=== PATIENT | female | born 1940 | race Caucasian/White ===

== ENCOUNTER 2020-10-26 02:06 | Day surgery (SDC) | payer OTHER, SELFPAY ==
[2020-10-18 13:07] VITALS: BMI 24.5
[2020-10-26 09:48] VITALS: BP 151/86; PULSE 92; RESP 20; TEMP 36.2; O2SAT 98; BMI 23.6
--- NOTE | 2020-10-26 09:51 | WPDANESEPPF ---
Anes - Initial Pre Proc Eval Procedure: Operation Date: 10/26/20 10:30 Proposed Procedures p Esophagogastroduodenoscopy - Doe Macdonald MD Date/Time: 10/26/20 09:51 Surgeon: Doe Macdonald MD Pre Op Diagnosis: GERD, Dysphagia Patient Data Age: 80 Gender: F Height: 1.65 m Weight: 64.3 kg Last Vital Signs Temp 97.1 F L 10/26/20 09:48 Pulse 92 10/26/20 09:48 Resp 20 10/26/20 09:48 BP 151/86 H 10/26/20 09:48 Pulse Ox 98 10/26/20 09:48 Allergies Allergy/AdvReac Type Severity Reaction Status Date / Time Sulfa (Sulfonamide Allergy Unknown Unknown Verified 10/26/20 09:46 Antibiotics) Home Medications Medication Instructions Recorded Confirmed Type aspirin [Aspir-81] 81 mg PO DAILY 10/18/20 10/18/20 History levothyroxine 100 mcg PO DAILY 10/18/20 10/18/20 History pantoprazole 40 mg PO BID 10/18/20 10/18/20 History Patient hx anesthesia problems: none Family hx anesthesia problems: none PMFSH Past Medical History Medical History (Updated 10/26/20 @ 09:45 by Eddie Reyna MD) Arthritis GERD (gastroesophageal reflux disease) TIA (transient ischemic attack) Family History Family History (Updated 11/28/15 @ 09:38 by DOCTOR UNKNOWN) Other Cerebrovascular accident Family history of cardiovascular disease Family history of rheumatoid arthritis Social History Social History Smoking status: Former smoker Tobacco type: cigars Alcohol intake: current Drinks per week: 7 Alcohol use details: one glass wine daily Substance use: never Substance use type: does not use Living arrangements: alone Gender identity (if verbalized by the patient): Female Sexual Orientation (if Verbalized by the Patient): Straight or Heterosexual Spiritual care concerns: No Anes - Eval Final PreProcedure Day of Procedure 10/26/20 09:51 Patient weight: overweight Heart: regular rate and rhythm Lungs: clear to auscultation Airway: Mallampati scale class II Neurological: alert and oriented Last oral intake: >/= 8 hours ASA classification: III Emergent: no Anesthetic plan: proceed Anesthesia type and monitoring: general GIVS and standard monitoring Informed Consent: The patient's anesthetic plan and its attendant risks and benefits were discussed with the patient/family/POA. Questions were solicited and answers provided to the satisfaction of the patient/family/POA.
[2020-10-26] MEDS: LACTATED RINGERS 1,000 ML 150 ML IV CONT (09:52)
--- NOTE | 2020-10-26 09:53 | SUR.PREOP ---
Small purple raised area noted to lower lip.
--- NOTE | 2020-10-26 10:16 | P.CONGI_ITS ---
Assessment and Plan Assessment and plan (1) Dysphagia: Code(s): R13.10 - Dysphagia, unspecified Status: Acute Assessment and Plan: Patient has difficulty swallowing. Appears to be on the basis of acid reflux. Plan is for EGD to assess more thoroughly. Soft food is advised. Continuing PPI therapy as prudent further recommendations will be given after endoscopy. (2) GERD (gastroesophageal reflux disease): Code(s): K21.9 - Gastro-esophageal reflux disease without esophagitis Status: Inactive Assessment and Plan: Patient has a history of heartburn. This is improved on PPI therapy. Necessity for b.i.d. or once daily dosing will be determined after endoscopy. GI Consult Note Consult date/time: 10/26/20 10:16 HPI: Bisi Ayala is a 80 year old female Complains of difficulty swallowing. She reports over the last 6 months she has had difficulty swallowing. Food will catch in the mid substernal portion of the chest. Patient has tried PPI therapy with no consistent improvement. Swallowing difficulties appear to happen with more solid foods. She does regurgitate and bring food back up when he gets caught. Patient has been treated for acid reflux. She has had heartburn off and on for many years. Patient denies any weight loss or bleeding. Patient presents today for EGD. Review of Systems Review of Systems: All systems reviewed & are unremarkable except as noted in HPI and below PMFSH Past Medical History Medical History (Updated 10/26/20 @ 10:18 by Doe Macodnald MD) Arthritis GERD (gastroesophageal reflux disease) TIA (transient ischemic attack) Family History Family History (Updated 11/28/15 @ 09:38 by DOCTOR UNKNOWN) Other Cerebrovascular accident Family history of cardiovascular disease Family history of rheumatoid arthritis Social History Social History Smoking status: Former smoker Tobacco type: cigars Alcohol intake: current Drinks per week: 7 Alcohol use details: one glass wine daily Substance use: never Substance use type: does not use Living arrangements: alone Gender identity (if verbalized by the patient): Female Sexual Orientation (if Verbalized by the Patient): Straight or Heterosexual Spiritual care concerns: No Meds Home Medications and Allergies Home Medications Medication Instructions Recorded Confirmed Type aspirin [Aspir-81] 81 mg PO DAILY 10/18/20 10/18/20 History levothyroxine 100 mcg PO DAILY 06/22/21 06/22/21 History pantoprazole 40 mg PO BID 10/18/20 10/18/20 History Allergies Allergy/AdvReac Type Severity Reaction Status Date / Time Sulfa (Sulfonamide Allergy Unknown Unknown Verified 10/26/20 09:46 Antibiotics) Vital Signs Vital Signs - 24 hr 10/26/20 09:48 Temperature 97.1 F L Pulse Rate 92 Respiratory Rate 20 Blood Pressure 151/86 H Pulse Oximetry 98 Exam Narrative: Exam Narrative: Physical exam reveals patient be alert. Vital signs stable. HEENT exam is unremarkable. Patient is anicteric. Lungs are c lear to auscultation and percussion. Heart is without murmur or extra sounds. Abdominal exam bowel sounds are present soft nontender with no organomegaly. Digital external rectal exam deferred.
[2020-10-26 10:21] VITALS: BP 128/69; PULSE 76; RESP 25; O2SAT 98
[2020-10-26 10:31] VITALS: BP 136/79; PULSE 78; RESP 18; O2SAT 100
[2020-10-26 10:41] VITALS: BP 159/86; PULSE 79; RESP 18; O2SAT 96
== END 2020-10-26 10:47 | disposition home or self-care (01) ==
PROVIDERS: PCP Family Medicine Adolescent Medicine; Visit Provider Internal Medicine Gastroenterology
PROC: 0DJ08ZZ Inspection of Upper Intestinal Tract, Via Natural or Artificial Opening Endoscopic (ICD-10-PCS; CPT 43235; principal; 2020-10-26 10:30)
DX: K22.2 Esophageal obstruction (principal); K31.5 Obstruction of duodenum; K21.9 Gastro-esophageal reflux disease without esophagitis; Z86.73 Personal history of transient ischemic attack (TIA), and cerebral infarction without residual deficits; Z79.82 Long term (current) use of aspirin; Z87.891 Personal history of nicotine dependence
CPT/HCPCS: 43245; 43450; C1726; J2704; J7120

== ENCOUNTER 2020-11-13 10:14 | Emergency (ER) | payer OTHER, SELFPAY ==
[2020-11-13 10:22] VITALS: BP 147/80; PULSE 106; RESP 18; TEMP 36.2; O2SAT 97
--- NOTE | 2020-11-13 10:22 | ED.BACK ---
HPI - Back Pain/Injury General Chief Complaint: Back Pain/Injury Stated Complaint: mid back pain Time Seen by Provider: 11/13/20 10:30 Source: patient and RN notes reviewed Mode of arrival: ambulatory Limitations: no limitations History of Present Illness HPI Narrative: 80-year-old female presents with concern for upper back pain between her shoulder blades. Reports symptoms started approximately 1 week ago. She denies any injury or trauma. She denies any precipitating factors such as overexertion, yard work etc. She reports symptoms have worsened over the last 2 days causing her problems sleeping. She reports she has been taking ibuprofen with no relief. She denies any chest pain, shortness of breath. Reports one episode of nausea yesterday. She denies cough, fever, upper respiratory symptoms. She denies rash, burning sensation. She was vaccinated for Covid and shingles. She denies any pain relieving factors. MD elicited complaint: back pain Related Data Home Medications Medication Instructions Recorded Confirmed aspirin [Aspir-81] 81 mg PO DAILY 10/18/20 11/13/20 levothyroxine 100 mcg PO DAILY 10/18/20 11/13/20 pantoprazole 40 mg PO BID 10/18/20 11/13/20 denosumab [Prolia] 60 mg SUBCUT WEEKLY 11/13/20 11/13/20 Allergies Allergy/AdvReac Type Severity Reaction Status Date / Time Sulfa (Sulfonamide Allergy Unknown Unknown Verified 10/26/20 09:46 Antibiotics) Review of Systems Review of Systems: Narrative: CONSTITUTIONAL: Denies malaise, chills, sweats, or fever. EYES: Denies visual changes, redness, or discharge. ENT: Denies rhinorrhea, congestion, sinus pain, otalgia or sore throat. CARDIOVASCULAR: Denies chest pain, palpitations, or edema. RESPIRATORY: Denies cough or dyspnea. GASTROINTESTINAL: Denies abdominal pain,vomiting, diarrhea. Reports one episode of nausea GENITOURINARY: Denies dysuria or hematuria. SKIN: Denies rash, burning, or itching. MUSCULOSKELETAL: Reports upper back pain. Denies joint pain, or myalgia. NEUROLOGIC: Denies numbness, weakness, or headache. PSYCHIATRIC: Denies anxiety or depression. All systems reviewed & are unremarkable except as noted in HPI and below PMFSH Past Medical History Medical History (Updated 11/13/20 @ 11:02 by Catrina Rivera NP) Arthritis GERD (gastroesophageal reflux disease) TIA (transient ischemic attack) Family History Family History (Updated 11/28/15 @ 09:38 by DOCTOR UNKNOWN) Other Cerebrovascular accident Family history of cardiovascular disease Family history of rheumatoid arthritis Social History Social History Smoking status: Former smoker Tobacco type: cigars Alcohol intake: current Drinks per week: 7 Alcohol use details: one glass wine daily Substance use: never Substance use type: does not use Gender identity (if verbalized by the patient): Female Spiritual care concerns: No Comments At time of signature, agree with nursing past medical, surgical, social and family history. There is no relevant family history pertinent to the presenting complaint Exam Narrative: Exam Narrative: GENERAL: Well-appearing, well-nourished, and in no acute distress. HEAD: Normocephalic, atraumatic. EYES: PERRLA, conjunctivae clear ENT: Nares clear. Mucous membranes moist. NECK: Supple. No lymphadenopathy. No jugular venous distension, thyromegaly, or carotid bruits. Carotids were easily palpable bilaterally. CHEST: No respiratory distress. Clear to auscultation. No bony deformities, no asymmetry. Speaks in full sentences. No chest wall, back tenderness HEART: Regular rate and rhythm. No murmur heard. Normal peripheral pulses. EXTREMITIES: Grossly normal range of motion. No edema. SKIN: Warm, dry, no rash. No erythema or bruising noted NEURO: Alert and oriented x3. PSYCH: Normal mood and affect Course Course Emergency Course: Patient is aware of, understands and agrees to be seen in the emergency room. Anticipato
--- NOTE | 2020-11-13 10:43 | ECG_ITS ---
Measurements Intervals [place] Rate: 84 P: 48 NH: 166 QRS: -30 QRSD: 86 T: 30 QT: 356 QTc: 422 Interpretive Statements SINUS RHYTHM DELAYED PRECORDIAL R/S TRANSITION CONSIDER INFERIOR INFARCT, AGE INDETERMINATE BASELINE ARTIFACT- I, II, III, AVR, AVL, V4-V6 ABNORMAL ECG Electronically Signed On 11-13-2020 12:39:23 CDT by Dimitri Griffiths D.O.
== END 2020-11-13 11:12 | disposition short-term general hospital (02) ==
PROVIDERS: Emergency Provider Nurse Practitioner; PCP Family Medicine Adolescent Medicine
DX: M54.89 Other dorsalgia (principal); R94.31 Abnormal electrocardiogram [ECG] [EKG]; Z87.891 Personal history of nicotine dependence; M19.90 Unspecified osteoarthritis, unspecified site; Z86.73 Personal history of transient ischemic attack (TIA), and cerebral infarction without residual deficits; K21.9 Gastro-esophageal reflux disease without esophagitis
CPT/HCPCS: 93005; 99213; G0463

== ENCOUNTER 2020-11-13 11:45 | Emergency (ER) | payer OTHER, SELFPAY ==
[2020-11-13] VITALS (13 sets, daily range): BP systolic 135–182; BP diastolic 58–130; PULSE 73–98; RESP 14–24; TEMP 36.8; O2SAT 96–100
--- NOTE | ~2020-11-13 | CT_ITS ---
EXAMINATION: CT thoracic spine wo con DATE: 11/13/2020 13:58 INDICATION: Upper back pain TECHNIQUE: Computed tomography (CT) of the thoracic spine was performed without intravenous contrast. Automated exposure control and iterative reconstruction technique were employed. The dose-length pro duct was 708.60 mGy-cm. COMPARISON: None FINDINGS: Alignment is normal. Chronic minimal anterior wedging at T7 and T11. No fracture. Remaining vertebral body heights are normal. No fracture. Moderate disc height loss at T6-T7 through T8-T9, se le disc height loss at L3-L4 through L5-S1. Mild disc height loss at the remaining thoracic and lum bar levels sparing L2-L3. There is ossification on the posterior longitudinal ligament which occupies a significant portion of the anterior to central aspect of the central canal at T8-T9 resulting in s evere central canal stenosis. The central canal at this location measures 5 mm AP in the mid sagittal plane, decreased from 15 mm immediately proximal and distal to the ossification. There is mild centr al canal stenosis at a few additional levels in the thoracic spine resulting from either small disc b ulges or ossification along the ligamentum flavum, the latter most prominent at T10-T11. There are ad ditional disc bulges resulting in mild central canal stenosis at L1-L2, L2-L3 and L5-S1. Moderate juli tral canal stenosis resulting from combination of large disc bulges and hypertrophy of the ligamentum flavum at L3-L4 and L4-L5. No significant neural foraminal stenosis in the thoracic spine. Moderate neural foraminal stenosis bilaterally at L3-L4, L4-L5 and L5-S1. Visualized portions of the lungs are clear. Heart size is normal. Atherosclerotic coronary artery calcifications. 7 mm hyperdense protein aceous/hemorrhagic cyst at the upper pole of the left kidney. IMPRESSION: 1. Moderate thoracic and severe lower lumbar spondylosis. 2. 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 Reviewed, dictated and finalized at location A. IMPRESSION: 1. Moderate thoracic and severe lower lumbar spondylosis. 2. 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
--- NOTE | 2020-11-13 11:56 | ECG_ITS ---
Measurements Intervals [place] Rate: 90 P: 47 AR: 163 QRS: -38 QRSD: 86 T: 37 QT: 356 QTc: 437 Interpretive Statements SINUS RHYTHM LEFT AXIS DEVIATION LOW QRS VOLTAGE IN PRECORDIAL LEADS BORDERLINE R WAVE PROGRESSION, ANTERIOR LEADS BASELINE ARTIFACT- I, II, AVR, AVL BORDERLINE ECG Electronically Signed On 11-13-2020 12:42:47 CDT by Dimitri Griffiths D.O.
--- NOTE | 2020-11-13 13:02 | ED.BACK ---
HPI - Back Pain/Injury General Chief Complaint: Back Pain/Injury Stated Complaint: upper back pain Time Seen by Provider: 11/13/20 13:02 History of Present Illness HPI Narrative: Burning pain in the bilateral mid thoracic spine for about the past week. Worse when she first starts activity and worse at rest. No associated symptoms. No injury, rash, weakness, numbness, CP, SOB. She has never had this before. Went to Urgent care and sent here due to abnormal EKG. Related Data Home Medications Medication Instructions Recorded Confirmed aspirin [Aspir-81] 81 mg PO DAILY 10/18/20 11/13/20 levothyroxine 100 mcg PO DAILY 10/18/20 11/13/20 pantoprazole 40 mg PO BID 10/18/20 11/13/20 denosumab [Prolia] 60 mg SUBCUT [id number] 11/13/20 11/13/20 Allergies Allergy/AdvReac Type Severity Reaction Status Date / Time Sulfa (Sulfonamide Allergy Unknown Unknown Verified 10/26/20 09:46 Antibiotics) Review of Systems Review of Systems: All systems reviewed & are unremarkable except as noted in HPI and below Constitutional: Constitutional: Denies chills, Denies fever(s) and Denies weakness Cardiovascular: Cardiovascular: Denies chest pain Respiratory: Respiratory: Denies dyspnea Gastrointestinal: Gastrointestinal: Denies abdominal pain, Denies nausea and Denies vomiting Genitourinary: Genitourinary: Denies hematuria, Denies nocturia and Denies dysuria Musculoskeletal: Musculoskeletal: Reports as per HPI Neurologic: Denies numbness and Denies weakness [facility] Past Medical History Medical History Arthritis GERD (gastroesophageal reflux disease) TIA (transient ischemic attack) Family History Family History Other Cerebrovascular accident Family history of cardiovascular disease Family history of rheumatoid arthritis Social History Social History Smoking status: Former smoker Tobacco type: cigars Alcohol intake: current Drinks per week: 7 Alcohol use details: one glass wine daily Substance use: never Substance use type: does not use Gender identity (if verbalized by the patient): Female Spiritual care concerns: No Exam Const: General: healthy appearing, no acute distress and alert Orientation/consciousness: patient oriented x3 HENMT: Head: normal to inspection Neck: Neck: normal visual inspection Chest: Chest palpation & inspection: tenderness Resp: Effort & Inspection: normal respiratory effort Auscultation: clear to auscultation bilaterally, no rales, no rhonchi and no wheezes Cardio: Jugular venous distension: no JVD Rate: regular rate Rhythm: regular rhythm Heart sounds: no murmurs GI: Inspection: non-distended GI Palp: Yes Soft to palpation and No Tenderness to palpation present (GI) Back/Spine/Pelvis: Other: Mildly tenderness across mid back bilaterally Skin: General skin exam: normal color Neuro: General: patient oriented x3 and moves all extremities Speech: normal speech Extrem: General: no edema Psych: Appearance: well kempt Affect: normal affect Course Vital Signs Vital signs: Vital Signs Temperature 36.8 C 11/13/20 11:54 Pulse Rate 98 11/13/20 11:54 Respiratory Rate 20 11/13/20 11:54 Blood Pressure 182/104 H 11/13/20 11:54 Pulse Oximetry 98 11/13/20 11:54 Temperature 36.8 C 11/13/20 11:54 Pulse Rate 92 11/13/20 15:01 Respiratory Rate 19 11/13/20 15:01 Blood Pressure 152/88 H 11/13/20 15:01 Pulse Oximetry 97 11/13/20 15:01 MDM - Back Pain/Injury MDM Narrative Medical decision making narrative: Pain seems to be muscular. Nothing acute on EKG. Differential Diagnosis Differential diagnosis: Likely thoracic back pain Medical Records Attestation: I reviewed the patient's medical records. Lab Data Attestation: I reviewed the patient's lab results.
== END 2020-11-13 15:34 | disposition home or self-care (01) ==
PROVIDERS: Emergency Provider Emergency Medicine; PCP Family Medicine Adolescent Medicine
DX: M48.04 Spinal stenosis, thoracic region (principal); K21.9 Gastro-esophageal reflux disease without esophagitis; M19.90 Unspecified osteoarthritis, unspecified site; Z86.73 Personal history of transient ischemic attack (TIA), and cerebral infarction without residual deficits; Z87.891 Personal history of nicotine dependence; M47.816 Spondylosis without myelopathy or radiculopathy, lumbar region; M47.814 Spondylosis without myelopathy or radiculopathy, thoracic region; R94.31 Abnormal electrocardiogram [ECG] [EKG]
CPT/HCPCS: 72128; 93005; 99284

== ENCOUNTER → 2021-03-07 13:56 | Outpatient (CLI) | payer OTHER, SELFPAY ==
--- NOTE | ~2021-03-07 | MMUS_ITS ---
EXAMINATION: MM diagnostic dony BI w chaim, US breast BI complete HISTORY: Right nipple inversion TECHNIQUE: ML, MLO and craniocaudal 3-D tomosynthesis images of both breasts were performed and synth etic 2-D images were generated. CAD analysis was submitted and interpreted. High resolution complete bilateral breast ultrasound including all 4 quadrants and subareolar areas was performed. COMPARISON: 05/27/2014 bilateral screening mammogram BREAST PARENCHYMAL COMPOSITION: The breasts are extremely dense, which lowers the sensitivity of mamm ography. FINDINGS: MAMMOGRAPHIC FINDINGS: There are numerous calcifications scattered throughout both breasts. No suspicious mass, architectural distortion, malignant calcification or skin thickening or retractio n is evident. ULTRASOUND: There is dense fibroglandular stroma of the breasts. No suspicious mass or shadowing or other signifi cant sonographic abnormality is detected. IMPRESSION: 1. No mammographic evidence of malignancy 2. Routine mammographic screening is recommended. BI-RADS Category 2: Benign finding(s). Reviewed, dictated and finalized at location A. IDER RELATIONS MANAGER IMPRESSION: 1. No mammographic evidence of malignancy 2. Routine mammographic screening is recommended. BI-RADS Category 2: Benign finding(s).
== END ==
PROVIDERS: PCP Family Medicine Adolescent Medicine; Visit Provider Physician Assistant
DX: N64.59 Other signs and symptoms in breast (principal)
CPT/HCPCS: 76641; 77062; 77066; G0279

== ENCOUNTER → 2021-09-12 08:50 | Outpatient (CLI) | payer OTHER, SELFPAY ==
--- NOTE | ~2021-09-12 | MR_ITS ---
EXAMINATION: MR brain/brain stem wo con DATE: 09/12/2021 09:26 INDICATION: Transient global amnesia. TECHNIQUE: Magnetic resonance imaging (MRI) of the brain and brainstem was performed without intraven ous contrast. COMPARISON: Brain MRI 12/21/2017 FINDINGS: There are scattered areas of nonspecific increased T2-weighted signal intensity in the cere bral white matter. There is no intracranial hemorrhage, acute infarction, or abnormal intracranial ma ss lesion. The ventricles are normal in size. There are likely changes of ocular lens replacement mary geries. The paranasal sinuses are clear. The mastoid air cells are normal. IMPRESSION: 1. Stable moderate nonspecific cerebral white matter disease, which likely represents chronic small v essel ischemic disease. Reviewed, dictated and finalized at location B. IMPRESSION: 1. Stable moderate nonspecific cerebral white matter disease, which likely repr esents chronic small vessel ischemic disease.
== END ==
PROVIDERS: PCP Family Medicine Adolescent Medicine; Visit Provider Family Medicine Adolescent Medicine
DX: G45.4 Transient global amnesia (principal); R90.82 White matter disease, unspecified
CPT/HCPCS: 70551

== ENCOUNTER 2021-10-09 13:54 | Observation (INO) | payer OTHER, SELFPAY ==
--- NOTE | ~2021-10-09 | MR_ITS ---
EXAMINATION: MR brain/brain stem wo con DATE: 10/10/2021 10:52 INDICATION: Transient amnesia. TECHNIQUE: Magnetic resonance imaging (MRI) of the brain and brainstem was performed without intraven ous contrast. COMPARISON: Brain MRI 09/12/2021, head CT 10/09/2021 FINDINGS: There are scattered areas of nonspecific increased T2-weighted signal intensity in the cere bral white matter and laxmi. There is no intracranial hemorrhage, acute infarction, or abnormal intrac ranial mass lesion. The ventricles are normal in size. The paranasal sinuses are clear. There are lik robbie changes of ocular lens replacement surgeries. The mastoid air cells are normal. IMPRESSION: 1. Moderate nonspecific cerebral white matter disease and pontine disease, which likely represents ch ronic small vessel ischemic disease. Reviewed, dictated and finalized at location B. IMPRESSION: 1. Moderate nonspecific cerebral white matter disease and pontine disease, whic h likely represents chronic small vessel ischemic disease.
--- NOTE | ~2021-10-09 | CT_ITS ---
EXAMINATION: CT brain wo con DATE: 10/09/2021 15:07 INDICATION: Transient ischemic attack. Transient global amnesia. TECHNIQUE: Computed tomography (CT) of the head was performed without intravenous contrast. The mA wa s adjusted according to patient size. Iterative reconstruction technique was employed. The dose-lengt h product was 605.33 mGy-cm. COMPARISON: Head CT 12/23/2017, brain MRI 09/12/2021 FINDINGS: There are scattered areas of low attenuation in the cerebral white matter. There is no intr acranial hemorrhage, acute infarction, or abnormal intracranial mass lesion. The ventricles are jian l in size. The paranasal sinuses are clear. The mastoid air cells are normal. There are likely change s of ocular lens replacement surgeries. IMPRESSION: 1. Moderate nonspecific cerebral white matter disease, which likely represents chronic small vessel i schemic disease. Reviewed, dictated and finalized at location B. IMPRESSION: 1. Moderate nonspecific cerebral white matter disease, which likely represents chronic small vessel ischemic disease.
[2021-10-09 13:55] VITALS: BP 168/94; PULSE 116; RESP 18; TEMP 36.9; O2SAT 100
[2021-10-09 14:28] VITALS: BP 184/81; PULSE 107; RESP 20; O2SAT 97
--- NOTE | 2021-10-09 14:55 | ECG_ITS ---
Measurements Intervals [place] Rate: 86 P: 39 AL: 174 QRS: -33 QRSD: 80 T: 39 QT: 340 QTc: 408 Interpretive Statements SINUS RHYTHM LEFT AXIS DEVIATION [QRS AXIS < -30] COMPARED TO ECG 11/13/2020 11:59:51 NO SIGNIFICANT CHANGES Electronically Signed On 10-09-2021 16:33:56 CDT by Gualberto Otto M.D.
--- NOTE | 2021-10-09 14:56 | ED.NEUROSD ---
HPI - Neuro Symptoms/Deficit General Chief Complaint: Neuro Symptoms/Deficit Stated Complaint: neuro Time Seen by Provider: 10/09/21 14:36 History of Present Illness HPI Narrative: Pt presents with episodes of slumping over and panting respirations and not being responsive for a coule of minutes and then not remembering what happened then and also what happened before and after the event. Pt has a history of transient global amnesia starting in 2018. These spells improved but recently have been happening more frequently where she was getting a tattoo with her granddaughter which had been planned for months and when they got there she asked where they were and what they were doing and patient does not remember getting tattoo. Pt has seen PCP a few weeks ago and has neurology appointment next week. Related Data Home Medications Medication Instructions Recorded Confirmed pantoprazole 40 mg tablet,delayed 40 mg PO DAILY 08/31/21 10/09/21 release Allergies Allergy/AdvReac Type Severity Reaction Status Date / Time Sulfa (Sulfonamide Allergy Other Verified 10/09/21 19:18 Antibiotics) Review of Systems Review of Systems: All systems reviewed & are unremarkable except as noted in HPI and below PMFSH Past Medical History Medical History Arthritis GERD (gastroesophageal reflux disease) TIA (transient ischemic attack) Transient global amnesia Recurrent, 2017 Surgical History Surgical History History of left cataract surgery History of partial thyroidectomy 1987 History of tubal ligation Family History Family History (Updated 10/09/21 @ 19:31 by Tania Mckeon RN) Father Acute myocardial infarction Depression Family history of cardiovascular disease Mother Cerebrovascular accident Family history of rheumatoid arthritis Social History Social History (Updated 08/31/21 @ 09:48 by Shani Harper MA) Years smoked: 30 Smoking status: Former smoker Second hand tobacco smoke exposure: No Alcohol intake: current Drinks per week: 7 Alcohol use details: one glass wine daily Substance use: never Substance use type: does not use Gender identity (if verbalized by the patient): Female Sexual Orientation (if Verbalized by the Patient): Straight or Heterosexual Spiritual care concerns: No Agree to blood products: Yes Exam Const: General: healthy appearing Nutritional Appearance: well nourished Orientation/consciousness: patient oriented x3 Limitations: no limitations HENMT: Head: normal to inspection Eyes: Conjunctivae: conjunctivae normal EOM: EOMs intact bilaterally Direct Ophthalmoscopy: no photophobia Neck: Neck: normal visual inspection and no meningeal signs Resp: Effort & Inspection: normal respiratory effort Auscultation: clear to auscultation bilaterally Cardio: Rate: regular rate Rhythm: regular rhythm GI: GI Palp: Yes Soft to palpation Auscultation: normal bowel sounds Skin: General skin exam: normal color Rashes: no rashes Wounds: no wounds Neuro: General: patient oriented x3, moves all extremities, no meningeal signs, no focal motor deficits and CN's II-XI intact bilaterally Cranial nerves: Yes Nystagmus not present Speech: normal speech Extrem: General: normal to inspection and no clubbing, cyanosis or edema Psych: Mental Status: mental status grossly normal Affect: normal affect Attitude: cooperative Course Vital Signs Vital signs: Vital Signs Temperature 98.5 F 10/09/21 13:55 Pulse Rate 116 H 10/09/21 13:55 Respiratory Rate 18 10/09/21 13:55 Blood Pressure 168/94 H 10/09/21 13:55 Pulse Oximetry 100 10/09/21 13:55 Temperature 98.5 F 10/09/21 13:55 Pulse Rate 87 10/09/21 18:40 Respiratory Rate 16 10/09/21 18:40 Blood Pressure 154/79 H 10/09/21 18:40 Pulse Oximetry 96 10/09/21 18:40
[2021-10-09 15:27] LABS: Basophils Percent Auto 0.3 % (0.2-1.2); Eosinophils Percent Auto 0.4 % (0-4.4); Hematocrit 38.8 % (37.0-47.0); Hemoglobin 13.1 g/dL (12.0-15.0); Immature Granulocyte Absolute 0.03 K/mm3 (0.00-0.031); Immature Granulocyte Percent A 0.4 % (0-0.5); Mean Corpuscular HGB Conc 33.8 g/dl (32-36); Mean Corpuscular Hemoglobin 32.5 pg (26-34); Mean Corpuscular Volume 96.3 fl (80-100); Mean Platelet Volume 9.5 fl (7.4-10.4); Monocytes Absolute Auto 0.7 K/mm3 (0.1-0.6); Monocytes Percent Auto 9.1 % (2.6-8.5); Neutrophils Absolute Auto 4.4 K/mm3 (1.3-6.7); Neutrophils Percent Auto 60.8 % (45.5-73.1); Platelet Count Result 283 k/mm3 (150-375); Red Blood Count 4.03 M/mm3 (4.2-5.4); Red Cell Distribution Width 13.5 % (11.5-14.5); White Blood Count 7.3 K/mm3 (4.5-10.0)
[2021-10-09 15:38] LABS: Prothrombin Time 12.8 Seconds (11.1-14.7)
[2021-10-09 15:39] LABS: Partial Thromboplastin Time 28.5 SECONDS (22.3-36.8)
[2021-10-09 15:40] LABS: Alanine Aminotransferase 18 U/L (6-35); Albumin Level 4.4 g/dL (3.5-5.1); Alkaline Phosphatase 59 U/L (38-126); Anion Gap 8 mmol/L (8-16); Aspartate Amino Transferase 25 U/L (14-36); Bilirubin,Total 0.3 mg/dL (0.2-1.3); Blood Urea Nitrogen 20 mg/dL (7-17); Calcium 9.4 mg/dL (8.4-10.2); Carbon Dioxide 24 mmol/L (22-30); Chloride 104 mmol/L (98-107); Estimated CRCL calculation 47 ml/min; Estimated Glomerular Filt Rate > 60; Glucose 125 mg/dL (65-110); Potassium 3.8 mmol/L (3.4-5.0); Sodium 136 mmol/L (137-145)
[2021-10-09 15:52] LABS: Troponin I < 0.012 ng/mL (0.000-0.034)
[2021-10-09 18:40] VITALS: BP 154/79; PULSE 87; RESP 16; O2SAT 96
--- NOTE | 2021-10-09 18:47 | ADMGEN ---
This patient, Bisi Ayala, was admitted to 2 Medical Room 258-. Patient/family oriented to hospital policies and general routines including ID bracelet, bed and alarms, visiting hours, pain management, procedures, bathroom and other care routines, personal items, smoking policy, room service/diet, and visiting hours. Information on how to activate the Rapid Response Team has been discussed. Patient/Family are encouraged to report perceived risks to care and to ask questions if they do not understand what they are told or what they should do.
--- NOTE | 2021-10-09 20:26 | PM.IMHP ---
H&P: HPI History of Present Illness Date/Time: Patient was placed observation status for expected length of stay less than 23 hours for management, will plan to re-evaluate tomorrow for improvement. 10/09/21 20:26 Chief Complaint: Unresponsive episode Narrative: Ms. Ayala is an 81-year-old female who presented emergency room with episodes of missing time. Patient states that in 2018 she had somewhat similar episode where she was missing. The time and she was diagnosed with transient global amnesia. Patient states that over this last week she has had similar episodes but they have changed. Patient states that on Saturday night she was at [facility] with her family her son stated the pain she states she felt like the lights were turned off and could not recall anything. Patient states her son looked at her and she was panting, but her eyes were open and he she was speaking to him at times. Patient states she cannot recall any of this. Patient's son did not notice any slurred speech or abnormal speech. He did not notice any facial droop. Patient states she had a similar episode on . Patient states that on Saturday morning she was at her granddaughter's house and she yelled for help and when her granddaughter went to find her the patient was confused and she stated she did not know where she was at and she did not know who everyone was. Patient states she normally knows her granddaughter's boyfriend but did not know who he was. Patient's granddaughter states the patient was speaking to her throughout this episode. Patient states she has never lost bowel or bladder. Patient's son states that patient at times does slumped over but never loses consciousness. Patient states that she recently took her granddaughter to get a tattoo and her granddaughter had stated how she was acting mildly different but the patient was able to recall picking out her tacked to and pain but she does not recall actually getting the tattoo. Patient states that over time the episodes have got close together, but have not last any longer than 10 minutes. Patient states she has a known history of hypothyroidism and osteoporosis. Patient states she was supposed to follow-up with neurology next week. Review of Systems Review of Systems: A 12 point review of systems was completed patient all pertinent positive and negative per HPI the remainder are unremarkable. [facility] [place] Past Medical History Medical History Arthritis GERD (gastroesophageal reflux disease) TIA (transient ischemic attack) Transient global amnesia Recurrent, 2017 Surgical History Surgical History History of left cataract surgery History of partial thyroidectomy 1987 History of tubal ligation Family History Family History (Updated 10/09/21 @ 19:31 by Tania Mckeon RN) Father Acute myocardial infarction Depression Family history of cardiovascular disease Mother Cerebrovascular accident Family history of rheumatoid arthritis Social History Social History (Updated 08/31/21 @ 09:48 by Shani Harper MA) Years smoked: 30 Smoking status: Former smoker Second hand tobacco smoke exposure: No Alcohol intake: current Drinks per week: 7 Alcohol use details: one glass wine daily Substance use: never Substance use type: does not use Gender identity (if verbalized by the patient): Female Sexual Orientation (if Verbalized by the Patient): Straight or Heterosexual Spiritual care concerns: No Agree to blood products: Yes Meds Home Medications and Allergies Home Medications Medication Instructions Recorded Confirmed Type levothyroxine 100 mcg tablet 100 mcg PO DAILY #90 tabs 05/30/21 10/09/21 Rx denosumab 60 mg/mL subcutaneous 60 mg subcut [id number] #1 mL 08/31/21 10/09/21 Rx syringe (Prolia) pantoprazole 40 mg tablet,delayed 40 mg PO
[2021-10-09 21:28] VITALS: O2SAT 93
[2021-10-09 21:58] VITALS: BP 157/83; PULSE 80; RESP 18; TEMP 36.5; O2SAT 96
[2021-10-09 21:59] VITALS: BMI 24.9
[2021-10-10] MEDS: LEVOTHYROXINE SODIUM 100 MCG TABLET PO (05:40)
[2021-10-10 05:48] LABS: Basophils Percent Auto 0.5 % (0.2-1.2); Eosinophils Absolute Auto 0.1 K/mm3 (0-0.3); Eosinophils Percent Auto 1.1 % (0-4.4); Hematocrit 40.9 % (37.0-47.0); Hemoglobin 13.8 g/dL (12.0-15.0); Immature Granulocyte Absolute 0.02 K/mm3 (0.00-0.031); Immature Granulocyte Percent A 0.2 % (0-0.5); Lymphocytes Absolute Auto 3.66 K/mm3 (0.9-3.2); Lymphocytes Percent Auto 44.9 % (18.3-44.2); Mean Corpuscular HGB Conc 33.7 g/dl (32-36); Mean Corpuscular Hemoglobin 31.7 pg (26-34); Mean Corpuscular Volume 93.8 fl (80-100); Mean Platelet Volume 9.6 fl (7.4-10.4); Monocytes Absolute Auto 0.7 K/mm3 (0.1-0.6); Neutrophils Absolute Auto 3.7 K/mm3 (1.3-6.7); Neutrophils Percent Auto 45.3 % (45.5-73.1); Platelet Count Result 287 k/mm3 (150-375); Red Blood Count 4.36 M/mm3 (4.2-5.4); Red Cell Distribution Width 13.3 % (11.5-14.5); White Blood Count 8.2 K/mm3 (4.5-10.0)
[2021-10-10 06:00] VITALS: BP 139/68; PULSE 68; RESP 18; TEMP 36.2; O2SAT 96
[2021-10-10 06:07] LABS: Anion Gap 7 mmol/L (8-16); Blood Urea Nitrogen 17 mg/dL (7-17); Calcium 9.1 mg/dL (8.4-10.2); Carbon Dioxide 25 mmol/L (22-30); Chloride 107 mmol/L (98-107); Estimated CRCL calculation 47 ml/min; Estimated Glomerular Filt Rate > 60; Glucose 103 mg/dL (65-110); Magnesium 1.7 mg/dL (1.6-2.3); Sodium 139 mmol/L (137-145)
[2021-10-10] MEDS: ENOXAPARIN 40 MG/0.4 ML SYRINGE SUB-Q (09:16)
[2021-10-10] MEDS: ASPIRIN 81 MG ENTERIC TABLET PO (09:17)
[2021-10-10] MEDS: PANTOPRAZOLE 40 MG TABLET PO (09:17)
--- NOTE | 2021-10-10 11:47 | WPDNEURCNPN ---
Assessment and Plan Assessment and plan (1) Transient amnesia: Code(s): R41.3 - Other amnesia Status: Acute Plan transient global amnesia with negative MRI will obtain the EEG to rule out the possibility of partial or partial complex seizures in addition to the echocardiogram to rule out the possibility of any cardiac new abnormalities Consult date: 10/10/21 Time Seen: 09:00 Reason for consult: transient global amnesia HPI: Bisi Ayala is a 81 year old female 81 years old right-handed female admitted to the hospital through the emergency room the emergency room on October 09, 2021 at 2:36 p.m. for the complaint of limping over and panting respiration not being responsive for couple of minutes and then not remembering what happened . Patient has had the episodes of transient global amnesia since 2018 these spells improved and recently have been happening more frequently patient did not remember getting that had to pay she had gone with her daughter. Her medications included pantoprazole 40 mg delayed release, she has past history of 1. TIA with transient global amnesia and 2. Arthritis 3. Former smoker and current alcohol intake or 7 drinks per week, elevation in the emergency room revealed normal vital signs with blood pressure 168/94 and pulse oximetry of 100 routine lab normal and evaluation up until now includes CT scan of the head with no evidence of bleed no evidence of major stroke and only moderate nonspecific white matter disease brain MRI again consistent with small vessel ischemic disease medication at this time include aspirin 81 mg daily Lovenox 40 mg subcu daily levothyroxine 100 micro g daily and pantoprazole 40 mg daily Review of Systems Review of Systems: All systems reviewed & are unremarkable except as noted in HPI and below PMFSH Past Medical History Medical History Arthritis GERD (gastroesophageal reflux disease) TIA (transient ischemic attack) Transient global amnesia Recurrent, 2017 Surgical History Surgical History History of left cataract surgery History of partial thyroidectomy 1987 History of tubal ligation Family History Family History (Updated 10/09/21 @ 19:31 by Tania Mckeon RN) Father Acute myocardial infarction Depression Family history of cardiovascular disease Mother Cerebrovascular accident Family history of rheumatoid arthritis Social History Social History (Updated 08/31/21 @ 09:48 by Shani Harper MA) Years smoked: 30 Smoking status: Former smoker Second hand tobacco smoke exposure: No Alcohol intake: current Drinks per week: 7 Alcohol use details: one glass wine daily Substance use: never Substance use type: does not use Gender identity (if verbalized by the patient): Female Sexual Orientation (if Verbalized by the Patient): Straight or Heterosexual Spiritual care concerns: No Agree to blood products: Yes Meds Home Medications and Allergies Home Medications Medication Instructions Recorded Confirmed Type levothyroxine 100 mcg tablet 100 mcg PO DAILY #90 tabs 05/30/21 10/09/21 Rx denosumab 60 mg/mL subcutaneous 60 mg subcut [id number] #1 mL 08/31/21 10/09/21 Rx syringe (Prolia) pantoprazole 40 mg tablet,delayed 40 mg PO DAILY 08/31/21 10/09/21 History release Allergies Allergy/AdvReac Type Severity Reaction Status Date / Time Sulfa (Sulfonamide Allergy Other Verified 10/09/21 19:18 Antibiotics) Vital Signs Vital Signs - 24 hr 10/09/21 13:55 10/09/21 14:28 10/09/21 18:40 Temperature 36.9 C Pulse Rate 116 H 107 H 87 Respiratory Rate 18 20 16 Blood Pressure 168/94 H 184/81 H 154/79 H Pulse Oximetry 100 97 96 Oxygen Delivery 10/09/21 20:42 10/09/21 21:28 10/09/21 21:58 Temperature 36.5 C Pulse Rate 80 Respiratory Rate 18 Blood Pressure 157/83 H Pulse
[2021-10-10 14:55] VITALS: BP 130/73; PULSE 81; RESP 16; TEMP 36.3; O2SAT 97
--- NOTE | 2021-10-10 16:31 | PM.DS ---
DS: Admitting Diagnosis Discharge Date 10/10/2021 Admitting Diagnosis Amnesia DS: Discharge Diagnosis Discharge Diagnosis (1) Transient amnesia: Code(s): R41.3 - Other amnesia Status: Acute Assessment and Plan: Patient with history of transient global amnesia, 1st onset in 2017, 2nd episode in March 2021, presented with episode of amnesia She was seen in consultation by Neurology during admission Head CT showed moderate nonspecific white matter disease, no acute findings Brain MRI also with moderate nonspecific white matter and pontine disease. No acute findings Echocardiogram completed unremarkable, no significant valvular disease EEG completed on 10/10/2021. Results not available blood patient has appointment with Neurology in 1 week and EEG results will be reviewed at that time per Dr. Samano. TSH within normal limits. B12 low end of normal thus will initiate supplementation. Folate within normal limits. Mini-mental status exam score of 29/30. No signs/symptoms of depression. Patient denies feeling down, depressed, hopeless. Enjoys usual activities. She has follow-up already scheduled with Neurology in 1 week She was provided with contact information for [facility]. DS: Summary Hospital Course Hospital Course: Date of admission: 10/09/2021 Date of discharge: 10/10/2021 Bisi Ayala is an 81-year-old female with a history of arthritis, GERD, and transient global amnesia who presented to the emergency department on 10/09/2021 with episode where she could not remember what happened for a brief chunk of time. On presentation to the ED, her vital signs were stable, laboratory workup unremarkable. She was admitted to the hospitalist service for further evaluation and management and was seen in consultation by Neurology. Please see above for further details. The patient was feeling back to her usual state of health. She will follow-up with Neurology as an outpatient and will review EEG results at that time. She felt comfortable with discharge home where she lives alone. States her son lives very close by and is available to check on her frequently. Given patient's overall improvement, she was determined to no longer require inpatient care and was discharged in hemodynamically stable condition on 10/10/2021. Status at Discharge Functional status at discharge: independent ambulation Overall status at discharge: patient is back to baseline Time Spent with Patient Time attestation: Total time spent providing and/or coordinating discharge services: 38 minutes Time spent: Greater than 30 minutes Exam Narrative: General: Thin, well-appearing 81-year-old female, sitting up in bed, comfortable, NARD Neuro: awake, alert and oriented x4, speech clear, CN II-XII intact, strength 5/5 throughout, sensation intact, no pronator drift, bilateral hairspring inspector strength equal HEENMT: normocephalic, atraumatic, EOMI, sclerae anicteric, moist oral mucosa Respiratory: clear to auscultation bilaterally, nonlabored breathing Cardio: regular rate, regular rhythm with S1-S2 Abdomen: nondistended, normoactive bowel sounds, soft, nontender to palpation Extremities: no edema, erythema, or tenderness to palpation Skin: no rashes or lesions, warm and dry Psych: appropriate mood and affect, judgment and insight intact DS: Data Data Completed and Pending Labs on day of discharge: Labs from last 24 hours 10/10/21 10/10/21 10/10/21 05:39 05:39 05:39 WBC 8.2 RBC 4.36 Hgb 13.8 Hct 40.9 MCV 93.8 MCH 31.7 MCHC 33.7 RDW 13.3 Plt Count 287 MPV 9.6 Immature Gran % (Auto) 0.2 Neut % (Auto) 45.3 L Lymph % (Auto) 44.9 H [place] % (Auto) 8.0 Eos % (Auto) 1.1 Baso % (Auto) 0.5 Lymph # (Auto) 3.66 H [place] # (Auto) 0.7 H Eos # (Auto) 0.1 Baso # (Auto) 0.0 Abs Immat Gran (auto) 0.02 Absolute Neuts (auto) 3.7 Absolute Nucleated
--- NOTE | 2021-10-10 17:29 | ECHO_ITS ---
Patient Info Name: Bisi Ayala Age: 81 years : 1940 Gender: Female Ht: 64 in Wt: 154 lbs BSA: 1.79 m2 HR: 80 bpm BP: 157 / 83 mmHg Heart Rhythm: Sinus Rhythm Technical Quality: Fair Exam Date: 10/10/2021 8:22 AM Exam Location: [facility] Patient Status: Outpatient Admit Date: 10/09/2021 Staff Ordering Physician: Jolly Elise APRN Fixed Route Bus Operator: Soraya Scott RDCS Attending Provider: Olga Lidia Geronimo PA-C Referring Physician: Gosia ARELLANO; Exam Type: CA echo doppler color flow Study Info Indications - Transient amnesia Complete two-dimensional, color flow and Doppler transthoracic echocardiogram is performed. Summary 1. Complete two-dimensional, color flow and Doppler transthoracic echocardiogram is performed. 2. Normal LV size, sigmoid hypertrophy; hyperdynamic LV systolic function, ejection fraction more than 70%; grade 1 diastolic dysfunction. Normal mitral valve structure, trivial MR. Mild aortic valve sclerosis, mild stenosis, maximum velocity 1.7 m/sec, mean gradient 5 mmHg, aortic valve area 2.3 cm2. Trivial tricuspid regurgitation, RVSP 25 mmHg. Normal sinus rhythm. Left Ventricle Left ventricular chamber dimension is normal. Left ventricular systolic function is normal, estimated at >70%. There is mildly increased left ventricular wall thickness. Left ventricular septal wall motion is normal. The left ventricular diastolic function is grade I diastolic dysfunction. Right Ventricle Right ventricular chamber dimension is normal. Right ventricular systolic function is normal. Left Atria Left atrial chamber dimension is normal. Right Atria Right atrial chamber dimension is normal. Aortic Valve There is mild aortic valve sclerosis. There is mild aortic valve stenosis with a peak velocity of 172 cm/s, mean gradient of 5 mmHg, and aortic valve area of 2.4 cm2. Pulmonic Valve The pulmonic valve is normal. There is no pulmonic regurgitation. Mitral Valve The mitral valve has normal leaflets. There is trace mitral valve regurgitation. Tricuspid Valve The tricuspid valve leaflets are normal. There is trace tricuspid valve regurgitation. No pulmonary hypertension, estimated pulmonary arterial systolic pressure is 25 mmHg. Pericardium/Pleural The pericardium appears normal. There is no pericardial effusion. Inferior Vena Cava Normal inferior vena cava with >50% collapse upon inspiration consistent with normal right atrial pressure, 10 mmHg. Aorta The aortic root size at the sinus of Valsalva is normal. The prox ascending aorta size is normal. Left Ventricular Outflow Tract Name Value Normal LVOT 2D LVOT Diameter 2.0 cm LVOT Doppler LVOT Peak Gradient 7 mmHg LVOT Mean Gradient 3 mmHg LVOT VTI 24 cm LVOT VTI/AV VTI Ratio 0.8 LVOT Stroke Volume 73 ml LVOT CO 5.7 l/min LVOT CI 3.2 l/min/m2 Pulmonic Valve
[2021-10-10 18:15] LABS: Folic Acid 7.6 ng/mL (2.76->20)
--- NOTE | 2021-10-11 08:59 | P.NEURO_ITS ---
Neurology EEG Report General Information Date of Study: 10/10/21 TEST EEG DIAGNOSIS transient amnesia CONDITION OF RECORDING awake drowsy and sleep EEG NUMBER [id number] CLINICAL HISTORY patient was brought in to hospital with complaint of losing time EEG DESCRIPTION basic resting occipital frequency consists of moderate amount of well-organized medium voltage 8 to 9 hertz per 2nd alpha admixed with minimal amount of low- voltage 15 to 18 hertz per 2nd beta. During drowsiness low-voltage beta activity seen diffusely admixed with [place] waxing and waning posterior alpha rhythm. Bilateral symmetrical sleep activity seen during brief periods of sleep hyperventilation not done. Non paroxysmal. Nonfocal. Nonlateralizing. IMPRESSION Normal record
== END 2021-10-10 17:25 | disposition home or self-care (01) ==
LOC: ANHED 17:04 → ANH2MED 18:49
PROVIDERS: Nurse Practitioner Adult Health; Admitting Provider Family Medicine; Emergency Provider Emergency Medicine; PCP Family Medicine Adolescent Medicine; Visit Provider Physician Assistant
DX: G45.4 Transient global amnesia (principal); R90.82 White matter disease, unspecified; K21.9 Gastro-esophageal reflux disease without esophagitis; E89.0 Postprocedural hypothyroidism; M81.0 Age-related osteoporosis without current pathological fracture; Z86.73 Personal history of transient ischemic attack (TIA), and cerebral infarction without residual deficits; Z87.891 Personal history of nicotine dependence
CPT/HCPCS: 36415; 70450; 70551; 80048; 80053; 82607; 82746; 83735; 84443; 84484; 85025; 85610; 85730; 93005; 93306; 95816; 96372; 99285; A9270; G0378; J1650

== ENCOUNTER 2022-01-28 11:39 | Emergency (ER) | payer OTHER, SELFPAY ==
--- NOTE | ~2022-01-28 | XR_ITS ---
EXAMINATION: XR foot RT min 3V DATE: 01/28/2022 12:46 INDICATION: Right foot pain and swelling TECHNIQUE: Dorsoplantar, two oblique and lateral views of the right foot were obtained. COMPARISON: None. FINDINGS: Alignment is normal. No fracture. Mild polyarticular osteoarthritis involving the majority of the ti nts throughout the right foot. Small Achilles and plantar calcaneal spurs. Soft tissues are unremarka ble. IMPRESSION: 1. 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 No acute osseous abnormality. Reviewed, dictated and finalized at location A. IMPRESSION: 1. 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 No acute osseou s abnormality.
[2022-01-28 12:09] VITALS: BP 131/68; PULSE 80; RESP 18; TEMP 36.9; O2SAT 98
--- NOTE | 2022-01-28 13:19 | ED.GENADULT ---
HPI - General Adult General Chief complaint: Extremity Injury, Lower Stated complaint: rt foot pain and swelling History of Present Illness HPI narrative: Patient is an 81-year-old female who presents to the breast care via POV accompanied by adult son for evaluation of right foot pain that began 2 days ago. Additionally, she reports swelling and that her pain is located on plantar surface that extends from the midfoot to the forefoot. Ibuprofen provides some relief. Dorsiflexing worsens pain. History of arthritis, arrhythmia, and epilepsy. Related Data Home Medications Medication Instructions Recorded Confirmed levetiracetam 500 mg tablet 500 mg PO Q12H 11/30/21 01/28/22 (Keppra) levothyroxine 75 mcg tablet 75 mcg PO DAILY 11/30/21 01/28/22 metoprolol succinate 50 mg 50 mg PO DAILY 11/30/21 01/28/22 tablet,extended release 24 hr (Toprol XL) aspirin 81 mg chewable tablet 81 mg PO DAILY 01/28/22 01/28/22 Allergies Allergy/AdvReac Type Severity Reaction Status Date / Time levetiracetam [From Keppra] Allergy Cough Verified 01/28/22 12:28 Sulfa (Sulfonamide Allergy Other Verified 01/28/22 12:28 Antibiotics) Review of Systems Review of Systems: Pertinent negatives: Injury, fever, chills, sweats, change in appetite, poor p.o. intake, malaise, calf tenderness, skin color changes, rash, warmth, numbness, tingling, loss of sensation, deformity, decreased range of motion, weakness, difficulty with ambulation/coordination, nausea, vomiting, lymphadenopathy, shortness of breath, chest pain, heart palpitations, and heart murmur.. [facility] Past Medical History Medical History (Updated 01/28/22 @ 13:22 by JOE Meraz, BC) Arthritis Epilepsy GERD (gastroesophageal reflux disease) TIA (transient ischemic attack) Transient global amnesia Recurrent, 2017 Surgical History Surgical History History of left cataract surgery History of partial thyroidectomy 1988 History of tubal ligation Family History Family History Father Acute myocardial infarction Depression Family history of cardiovascular disease Mother Cerebrovascular accident Family history of rheumatoid arthritis Social History Social History Years smoked: 30 Smoking status: Former smoker Second hand tobacco smoke exposure: No Alcohol intake: current Drinks per week: 7 Alcohol use details: one glass wine daily Substance use: never Substance use type: does not use Gender identity (if verbalized by the patient): Female Sexual Orientation (if Verbalized by the Patient): Straight or Heterosexual Spiritual care concerns: No Agree to blood products: Yes Comments I have reviewed and agree with the patient's past medical, surgical, social, and family hx as documented by the RN. There is no relevant family history pertinent to the presenting complaint. Exam Narrative: GENERAL: Well-appearing, well-nourished, and in no acute distress. HEAD: Normocephalic, atraumatic. NECK: Supple. No Lymphadenopathy or nuchal rigidity appreciated. CHEST: Bilateral lung balbuena are clear to auscultation. No respiratory distress. No evidence of cough or pleuritic cp upon examination. HEART: Regular rate and rhythm. No murmur, gallop, or rub heard. EXTREMITIES: Mild generalized swelling noted to right foot. Moderate pain elicited to plantar surface of right mid and forefoot with active and passive dorsiflexion. No evidence of injury, decreased ROM, cyanosis, hematoma, laceration, abrasion, deformity, rash, or puncture. No evidence of dislocation, ligament laxity, effusion, or pain at rest. Pulses palpable at 2+, strength 5/5, and cap refill < 3 seconds in affected extremity. DTRs normal. Gait normal. SKIN: Warm, dry, no rash. NEURO: No focal deficits.
== END 2022-01-28 13:21 | disposition home or self-care (01) ==
PROVIDERS: Emergency Provider Nurse Practitioner Family; PCP Family Medicine Adolescent Medicine
DX: M19.071 Primary osteoarthritis, right ankle and foot (principal); G40.909 Epilepsy, unspecified, not intractable, without status epilepticus; K21.9 Gastro-esophageal reflux disease without esophagitis; Z86.73 Personal history of transient ischemic attack (TIA), and cerebral infarction without residual deficits; Z87.891 Personal history of nicotine dependence; Z90.89 Acquired absence of other organs
CPT/HCPCS: 73630; 99213; G0463

== ENCOUNTER → 2022-05-24 11:06 | Outpatient (CLI) | payer OTHER, SELFPAY ==
--- NOTE | ~2022-05-24 | US_ITS ---
EXAMINATION: US venous doppler [facility] DATE: 05/24/2022 11:33 INDICATION: Calf pain and edema. TECHNIQUE: Grayscale ultrasound images without and with compression and Doppler ultrasound images of the bilateral lower extremity veins were obtained. COMPARISON: Ultrasound 12/22/2017 FINDINGS: The visualized portions of right common femoral vein, profunda (deep) femoral vein, femoral vein, pop liteal vein, peroneal veins, posterior tibial veins, and greater saphenous vein outflow are patent. The visualized portions of left common femoral vein, profunda femoral vein, femoral vein, popliteal v ein, peroneal veins, posterior tibial veins, and greater saphenous vein outflow are patent. IMPRESSION: 1. No deep venous thrombosis. Reviewed, dictated and finalized at location A. STONE FITTER
== END ==
PROVIDERS: PCP Family Medicine Adolescent Medicine; Visit Provider Family Medicine Adolescent Medicine
DX: M79.661 Pain in right lower leg (principal); M79.662 Pain in left lower leg; R60.0 Localized edema
CPT/HCPCS: 93970

== ENCOUNTER → 2022-06-06 11:00 | Outpatient (CLI) | payer OTHER, SELFPAY ==
--- NOTE | ~2022-06-06 | MM_ITS ---
EXAMINATION: MM screening dony BI w chaim HISTORY: Screening mammogram TECHNIQUE: Craniocaudal and mediolateral oblique 3-D tomosynthesis images were obtained and synthetic 2-D images were generated. CAD analysis was submitted and interpreted. COMPARISON: 03/07/2021 bilateral diagnostic mammogram and complete bilateral breast ultrasound examina tion 05/27/2014 bilateral screening mammogram BREAST PARENCHYMAL COMPOSITION: The breasts are heterogeneously dense, which may obscure small masses . FINDINGS: Numerous bilateral benign calcified microhematomas and benign punctate microcalcifications, occasional arterial calcifications. No malignant calcifications are noted. No suspicious mass, architectural distortion, skin thickening or retraction or significant new or dev eloping density of either breast is evident. There is no evidence of suspicious mass, calcification, or architectural distortion to suggest malignancy in either breast. There has been no suspicious inte rval change. IMPRESSION: 1. No mammographic evidence of malignancy. 2. Recommend routine screening mammography in one year. BI-RADS Category 2: Benign finding(s). Reviewed, dictated and finalized at location A. IGN STUDENT ADVISER
== END ==
PROVIDERS: PCP Family Medicine Adolescent Medicine; Visit Provider Family Medicine Adolescent Medicine
DX: Z12.31 Encounter for screening mammogram for malignant neoplasm of breast (principal)
CPT/HCPCS: 77063; 77067

== ENCOUNTER 2022-08-31 11:51 | Emergency (ER) | payer OTHER, SELFPAY ==
[2022-08-31 12:02] VITALS: BP 174/82; PULSE 72; RESP 18; TEMP 36.4; O2SAT 100
--- NOTE | 2022-08-31 12:33 | ED.GENADULT ---
HPI - General Adult General Chief complaint: Eye Problems Stated complaint: Lt Eye Irritation,Rash Time Seen by Provider: 08/31/22 12:24 Source: patient and RN notes reviewed Mode of arrival: ambulatory Limitations: no limitations History of Present Illness HPI narrative: Patient presents today complaining of left eye redness x2 days with yellow drainage that started today. She does report some itching and irritation as well. Denies vision changes. She has tried some dry eye drops, which should provide some relief. She is also complaining of a rash to her right wrist and left forearm that is pruritic and has been present for the past 6 months. States the rash wax and wanes. She has tried hydrocortisone cream and eczema cream without relief. She has not been evaluated by her PCP regarding this rash. Related Data Home Medications Medication Instructions Recorded Confirmed levetiracetam 500 mg tablet 500 mg PO Q12H 11/30/21 08/31/22 (Keppra) levothyroxine 75 mcg tablet 75 mcg PO DAILY 11/30/21 08/31/22 metoprolol succinate 50 mg 50 mg PO DAILY 11/30/21 08/31/22 tablet,extended release 24 hr (Toprol XL) aspirin 81 mg chewable tablet 81 mg PO DAILY 01/28/22 08/31/22 Allergies Allergy/AdvReac Type Severity Reaction Status Date / Time Sulfa (Sulfonamide AdvReac Mild Other Verified 08/31/22 12:19 Antibiotics) Review of Systems Review of Systems: CONSTITUTIONAL: Denies body aches, fever, chills, or sweats. EYES: Denies visual changes. + left eye redness and drainage ENT: Denies rhinorrhea, congestion, sore throat, or otalgia. CARDIOVASCULAR: Denies chest pain, palpitations, or edema. RESPIRATORY: Denies cough or dyspnea. GASTROINTESTINAL: Denies abdominal pain, nausea, vomiting, or diarrhea. GENITOURINARY: Denies dysuria or hematuria. SKIN: + pruritic rash MUSCULOSKELETAL: Denies back pain, joint pain, or myalgia. NEUROLOGIC: Denies headache, numbness, tingling, or weakness. PSYCH: Denies depression or anxiety. [facility] Past Medical History Medical History Arthritis Epilepsy GERD (gastroesophageal reflux disease) TIA (transient ischemic attack) Transient global amnesia Recurrent, 2017 Surgical History Surgical History History of left cataract surgery History of partial thyroidectomy 1987 History of tubal ligation Family History Family History Father Acute myocardial infarction Depression Family history of cardiovascular disease Mother Cerebrovascular accident Family history of rheumatoid arthritis Social History Social History Years smoked: 30 Smoking status: Former smoker Second hand tobacco smoke exposure: No Alcohol intake: current Drinks per week: 7 Alcohol use details: one glass wine daily Substance use: never Substance use type: does not use Living arrangements: alone Occupation/Education: retired Gender identity (if verbalized by the patient): Female Sexual Orientation (if Verbalized by the Patient): Straight or Heterosexual Spiritual care concerns: No Agree to blood products: Yes Comments At time of signature, I have reviewed and agree with nursing past medical, surgical, social and family history unless otherwise noted. Please see nursing chart for further information. There is no relevant family history pertinent to the presenting complaint Exam Narrative: GENERAL: Well-appearing, well-nourished, and in no acute distress. HEAD: Normocephalic, atraumatic. EYES: EOMI. PERRL. Left eye: Injected conjunctiva, most significantly in the medial canthus. No active drainage at this time. Slight chemosis. Lids and lashes normal. Right eye normal. ENT: Mucous membranes pink and moist. NECK: Norm
== END 2022-08-31 12:41 | disposition home or self-care (01) ==
PROVIDERS: Emergency Provider Nurse Practitioner; PCP Family Medicine Adolescent Medicine
DX: H10.32 Unspecified acute conjunctivitis, left eye (principal); L30.9 Dermatitis, unspecified; Z87.891 Personal history of nicotine dependence
CPT/HCPCS: 99213; G0463

== ENCOUNTER 2024-01-22 09:00 | Outpatient (CLI) | payer OTHER, SELFPAY | END 2024-01-22 09:01 | disposition home or self-care (01) | LOC: ANHAUDIO 09:02 | PROVIDERS: PCP Family Medicine Adolescent Medicine; Visit Provider Otolaryngology | DX: H69.92 Unspecified Eustachian tube disorder, left ear (principal); H90.6 Mixed conductive and sensorineural hearing loss, bilateral | CPT/HCPCS: 92557; 92567 ==

== ENCOUNTER 2024-07-06 12:32 | Emergency (ER) | payer OTHER, SELFPAY ==
--- NOTE | ~2024-07-06 | XR_ITS ---
Exam: Abdomen 1V HISTORY: right flank pain r/o kidney stone COMPARISON: None. TECHNIQUE: Supine images of the abdomen FINDINGS: 9 degrees dextroscoliotic curvature lumbar spine is present. Extensive fecal stasis is identified within the colon. No calcifications are identified projecting since the bilateral kidneys or along the expected course of the bilateral ureters. IMPRESSION: Fecal stasis projecting over the colon. No discrete calcifications are identified projecting over the bilateral kidneys or along the expected course of the bilateral ureters. Reviewed, dictated and finalized at location A.
--- NOTE | 2024-07-06 12:42 | ED_ITS ---
HPI - Back Pain/Injury General Chief Complaint: Back Pain/Injury Stated Complaint: back pain Time Seen by Provider: 07/06/24 12:42 Source: patient Mode of arrival: ambulatory Limitations: no limitations History of Present Illness HPI Narrative: Bisi is an 84-year-old female patient presenting to the clinic today with complaints of sharp stabbing right flank pain that comes and goes x 4 days. She reports no urinary symptoms. No hematuria. No history of kidney stones. No known back injury. History of osteoarthritis. Related Data Home Medications ?Medication ?Instructions ?Recorded ?Confirmed ?Last Taken ?Type levetiracetam 500 mg tablet 500 mg PO Q12H 11/30/21 12/17/23 Unknown History (Keppra) aspirin 81 mg chewable tablet 81 mg PO DAILY 01/28/22 12/17/23 Unknown History metoprolol succinate 50 mg mg PO 07/06/24 Unknown History tablet,extended release 24 hr Allergies Allergy/AdvReac Type Severity Reaction Status Date / Time Sulfa (Sulfonamide AdvReac Mild Other Verified 07/06/24 12:45 Antibiotics) Review of Systems Review of Systems: Pertinent positives per HPI. Patient denies any fever, chills, rash, headache, visual changes, dizziness, cough, runny nose, sore throat, shortness of breath, chest pain, palpitations, nausea, vomiting, diarrhea, constipation, abdominal pain, or any urinary issues. [facility] Past Medical History Medical History Epilepsy Atrial fibrillation (11/2021) Transient global amnesia Recurrent, 2017 Arthritis GERD (gastroesophageal reflux disease) TIA (transient ischemic attack) Surgical History Surgical History History of left cataract surgery History of tubal ligation History of partial thyroidectomy 1987 Family History Family History Father Acute myocardial infarction Depression Family history of cardiovascular disease Mother Cerebrovascular accident Family history of rheumatoid arthritis Social History Social History Years smoked: 30 Smoking status: Former smoker Second hand tobacco smoke exposure: No Alcohol intake: current Drinks per week: 7 Alcohol use details: one glass wine daily Substance use: never Substance use type: does not use Do You Feel Safe in your Home?: Yes Lack of Transportation: No Lack of Food: Never True Current Housing: I Have Housing Concerned About Future Housing: No Difficulty Paying Gas/Electric Bills: No Difficulty Paying for Meds: No Currently Unemployed: No Education: Trade/Vocational Certificate Difficulty w/ Childcare or Family Care: No Living arrangements: alone Occupation/Education: retired Gender identity (if verbalized by the patient): Female Sexual Orientation (if Verbalized by the Patient): Straight or Heterosexual Spiritual care concerns: No Agree to blood products: Yes Comments At the time of my signature, I reviewed and agree with the nursing past medical, surgical, social, and family history. There is no relevant family history pertinent to the patient complaint. Exam Narrative: General: Well-developed, well nourished, in no apparent distress. Head: Normocephalic, atraumatic. Cardio: Regular rate and rhythm, s1 and s2 normal, no murmur appreciated. Resp: Clear to auscultation bilaterally, no rhonchi, rales, wheezing or rubs. Abdomen: Soft, pliable, bowel sounds present in all quadrants, non-tender to pa lpation, no organomegly, no CVAT tenderness. Course Course Emergency Course: Portions of this record may have been created with voice recognition software. Level of Care: Express Care Visit Vital Signs Vital signs: Vital Signs Temperature 36.3 C L 07/06/24 12:45 Pulse Rate 78 07/06/24 12:45 Respiratory Rate 18 07/06/24 12:45 Blood Pressure 170/80 H 07/06/24 12:45 Pulse Oximetry 97 07/06/24 12:45 Oxygen Delivery Room Air 07/06/24 12:45 Temperature 36.3 C L 07/06/24 12:45 Pulse Rate 78 07/06/24 12:45 Respiratory Rate 18 07/06/24 12:45 Blood Pressure 170/80 H 07/06/24 12:45 Pulse Oximetry 97 07/06/24 12:45 Oxygen Delivery Room Air 07/06/24 12:45 Vital signs reviewed MDM - Back Pain/Injury MDM Narrative Medical decision making narrative: At the time of visit patient is resting comfortably on the exam table. Patient appears to be nontoxic. Labs: Urinalysis shows 1+ leukocyte 1+ blood. We will send urine for culture. Diagnostics: KUB shows extensive fecal stasis identified within the colon without any discrete calcifications projecting over the bilateral kidneys or along the bilateral ureters. Plan: I suspect patient is constipated and has a probable UTI. Will place patient on MiraLax and Augmentin. No sign of kidney stone/ureterolithiasis was seen on the KUB. Supportive measures were discussed with the patient and they voiced understanding discharge instructions and agrees to treatment plan. Return precautions reviewed Differential Diagnosis Differential diagnosis: Likely lumbar radiculopathy, sciatica, strain of lumbar region, renal colic, pyelonephritis and other (muscle strain) Lab Data Labs: Lab Results 07/06/24 Range/Units 13:04 POC Urine Color Yellow POC Urine Clarity Clear POC Urine pH 5.5 POC Ur Specif Zamora 1.015 POC Urine Protein Negative (Negative) POC Ur Glucose (UA) Negative (Negative) POC Urine Ketones Negative (Negative) POC Urine Blood 1+ (Negative) POC Urine Nitrite Negative (Negative) POC Urine Bilirubin Negative (Negative) POC Urine Urobilinogen 0.2 POC U Leukocyte Esteras 1+ (Negative) Imaging Data Radiologist's impression: ITS Impressions Abdomen X-Ray 07/06/24 13:05 IMPRESSION: Fecal stasis projecting over the colon. No discrete calcifications are identified projecting over the bilateral kidneys or along the expected course of the bilateral ureters. Discharge Plan Discharge Clinical Impression: UTI (urinary tract infection) Qualifiers: Urinary tract infection type: acute cystitis Hematuria presence: with hematuria Qualified Code(s): N30.01 - Acute cystitis with hematuria Constipation Qualifiers: Constipation type: unspecified constipation type Qualified Code(s): K59.00 - Constipation, unspecified Patient Disposition: Home, Self-Care Condition: Stable Instructions: Antibiotic Form, Constipation (ED), Urinary Tract Infection in Older Adults (ED) Additional Instructions: Urine shows 1+ bacteria and 1+ blood in your urine. We will send urine for culture KUB shows no sign of kidney stones but does show some extensive fecal stasis projecting over your colon (constipation) Take prescription medications only as prescribed-miralax and Augmentin Increase fluids and stay well hydrated Tylenol/motrin for pain/fever Flonase and OTC antihistamines as directed Vicks vapor rub to open sinuses Sinus rinses for congestion Cepacol spray, cough drops, throat lozenges, warm tea with honey/lemon, gargle salt water to soothe throat BRAT diet for diarrhea Clear liquids x 24 hours then advance as tolerated for nausea/vomiting Go to the ED if you develop a worsening in your condition- high fever not controlled by Tylenol or Motrin, dehydration, weakness, lethargy, shortness of breath, or chest pain. Follow up with your PCP in 3-5 days if symptoms persist. Patient Language: Ukrainian Prescriptions: New amoxicillin-pot clavulanate 875-125 mg tablet 1 tablet PO Q12H 7 Days Qty: 14 0RF polyethylene glycol 3350 [ClearLax] 17 gram/dose powder 17 g PO DAILY 30 Days Qty: 510 0RF No Action metoprolol succinate 50 mg tablet extended release 24 hr PO aspirin 81 mg Tablet,Chewable 81 mg PO DAILY levetiracetam [Keppra] 500 mg tablet 500 mg PO Q12H triamcinolone acetonide 0.1 % cream 1 applic topical BID Qty: 30 1RF levothyroxine 75 mcg tablet 75 mcg PO DAILY Qty: 90 2RF Prolia 60 mg/mL syringe 60 mg SUBCUT [id number] Qty: 1 2RF Rx Instructions: inject once every 6 months last dose in August Follow-up/Referrals: Amauri Langford MD [Primary Care Provider] - Time of Disposition: 13:25 Quality NIHSS Nursing Documentation ED NIHSS nursing documentation: reviewed/agree
[2024-07-06 12:45] VITALS: BP 170/80; PULSE 78; RESP 18; TEMP 36.3; O2SAT 97
[2024-07-06 13:07] LABS: EDUAAPPEAR Clear; EDUABILI Negative (Negative); EDUABLOOD 1+ (Negative); EDUACOLOR1 Yellow; EDUAGLUCOSE Negative (Negative); EDUAKETONE Negative (Negative); EDUALEUKO 1+ (Negative); EDUANITRATE Negative (Negative); EDUAPH 5.5; EDUAPROTEIN Negative (Negative); EDUASPGRAVITY 1.015; EDUAUROBILI 0.2
--- OUTSIDE RECORDS SUMMARY | 2024-07-06 14:25 | XMS_ITS | Clinical Summary ---
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 Name Role Phone Unavailable Primary Care Provider Unavailabl e Social History Tobacco Use Types Packs/Day Years Used Date Smoking Tobacco: Never Assessed Comments Unknown Sex and Gender Information Value Date Recorded Sex Assigned at Not on file Legal Sex Female 4:14 PM CDT Gender Identity Not on file Sexual Orientation Not on file Plan of Treatment Health Maintenance Due Date Last Done Comments DTaP, Tdap and Td Vaccines ( 1 - Tdap) 02/17/1959 Zoster Vaccines (1 of 2) 02/17/1990 Dexa Scan (General) 02/17/2005 Pneumococcal Vaccine: 65+ Ye ars (1 of 1 - PCV) 02/17/2005 RSV Immunization or 60+ Years (1 - 1-dose 75+ series) 02/17/2015 COVID-19 Vaccine (2023-2 5 season) 2023 Influenza Adult (#1) 2024 Meningococcal B Vaccine Aged Out No l onger eligible based on patient's age to complete this topic Meningococcal Vaccine Aged Out No kevin taisha eligible based on patient's age to complete this topic RSV Immunizations Under 20 Months Aged Out No longer eligible based on patient's age to complete this topic
== END 2024-07-06 13:30 | disposition home or self-care (01) ==
PROVIDERS: Emergency Provider Nurse Practitioner Family; PCP Family Medicine Adolescent Medicine
DX: N30.01 Acute cystitis with hematuria (principal); K59.00 Constipation, unspecified; Z87.891 Personal history of nicotine dependence; I48.91 Unspecified atrial fibrillation; M19.90 Unspecified osteoarthritis, unspecified site; G40.909 Epilepsy, unspecified, not intractable, without status epilepticus; K21.9 Gastro-esophageal reflux disease without esophagitis; Z86.73 Personal history of transient ischemic attack (TIA), and cerebral infarction without residual deficits; Z90.89 Acquired absence of other organs
CPT/HCPCS: 74018; 81003; 87086; 99213; G0463

== ENCOUNTER 2024-11-20 09:47 | Outpatient (CLI) | payer OTHER, SELFPAY ==
--- NOTE | ~2024-11-20 | DEXA_ITS ---
Bone Density Report Name: SASHA MONTELONGO Age: 84 Sex: Female Ethnicity: White Date of : 1940 Indication: osteopenia; monitoring treatment; seizure disorder; Referring Provider: DARIN ALDANA Study: Bone densitometry was performed. Exam Date: November 20, 2024 Accession number: [id number] Bone Density: Region BMD T-score Z-score Classification AP Spine(L1, L2, L3) 1.145 1.2 3.9 Normal Femoral Neck (Left) 0.591 -2.3 0.2 Osteopenia Total Hip (Left) 0.770 -1.4 0.9 Osteopenia Femoral Neck (Right) 0.596 -2.3 0.2 Osteopenia Total Hip (Right) 0.760 -1.5 0.8 Osteopenia Total Hip Mean 0.765 -1.5 0.9 Osteopenia World Health Organization criteria for BMD impression classify patients as: Normal (T-score at or above -1.0), Osteopenia (T-score between -1.0 and -2.5), or Osteoporosis (T-score at or below -2.5). 10-year Fracture Risk: FRAX not reported because: Treated for osteoporosis Previous Exams: -- Region Exam Age BMD T-score BMD Change BMD Change Date g/cm2 vs Baseline vs Previous -- AP Spine (L1-L3) 11/20/2024 84 1.145 1.2 27.4%* 17.5%* 05/27/2014 74 0.974 -0.4 8.4%* 2.8%* 04/08/2012 72 0.948 -0.6 5.4%* 7.8%* 04/07/2010 70 0.879 -1.3 -2.2% -2.2% 07/02/2008 68 0.899 -1.1 Total Hip(Left) 11/20/2024 84 0.770 -1.4 9.2%* 4.8%* 05/27/2014 74 0.735 -1.7 4.2%* -0.6% 04/08/2012 72 0.740 -1.7 4.9%* -2.2% 04/07/2010 70 0.757 -1.5 7.3%* 7.3%* 07/02/2008 68 0.705 -1.9 Total Hip(Right) 11/20/2024 84 0.760 -1.5 10.1%* 3.3% 05/27/2014 74 0.736 -1.7 6.6%* -0.3% 04/08/2012 72 0.738 -1.7 6.9%* -3.0% 04/07/2010 70 0.761 -1.5 10.2%* 10.2%* 07/02/2008 68 0.690 -2.1 -- *Denotes significance at 95% confidence level, LSC for AP Spine = 0.022 g/cm2, LSC for Total Hip = 0.027 g/cm2 Rate of change results reflect vertebral levels common to all scans Clinical Information Provided by Patient: Is being treated for osteoporosis Has used the following medications: Prolia (i.e. denosumab) Has the following medical conditions: Any Seizure Disorders Patient maximum height was 64.5 Menopause Age: 47 No regular weight bearing exercise Onset of menses at age 11 Number of children 2 Impression: The patient has low bone mass, based on the Left Femoral Neck T-score. No significant bone loss was observed. Discussion: PATIENT UNDER TREATMENT WITH NO SIGNIFICANT BMD LOSS SINCE LAST EXAM. In an untreated patient, BMD typically declines with age. A lack of decline or gain is usually a sign that treatment is efficacious and fracture risk is reduced. It is important to ask patients whether they are taking their medications and to encourage continued and appropriate compliance with their osteoporosis therapies to reduce fracture risk. It is also important to review their risk factors and encourage appropriate calcium and vitamin D intakes, exercise, fall prevention and other lifestyle measures. Follow-Up: Consider a repeat BMD and Vertebral Fracture Assessment (VFA) exam in 2 years or sooner if medically necessary, to reassess this patient's status. Reported by: UMAIR on 11/20/2024 10:07:00 AM. Reviewed, dictated and finalized at location A.
== END 2024-11-20 09:48 | disposition home or self-care (01) ==
LOC: MICIMG 09:48
PROVIDERS: PCP Nurse Practitioner Family; Visit Provider Nurse Practitioner Family
DX: M85.89 Other specified disorders of bone density and structure, multiple sites (principal)
CPT/HCPCS: 77080